=== PATIENT | female | born 1990 | race Caucasian/White ===

== ENCOUNTER 2017-08-14 15:20 | Emergency (ER) | payer OTHER ==
[~2017-08-14] VITALS: Ht 170.2 cm; Wt 53.5 kg
[~2017-08-14 15:20] MED LIST: IBUPROFEN 600600 M1 PO; NOHOMEMEDICATIONS; PRENATAL
[2017-08-14] MEDS ORDERED: ZOLOFT50 MG PO (15:37)
[2017-08-14] MEDS ORDERED: BUSPIRONE HCL10 MG PO (15:38)
[2017-08-14 16:14] LABS: URINE BILIRUBIN NEGATIVE (Negative); URINE BLOOD NEGATIVE (Negative); URINE CLARITY CLEAR; URINE COLOR YELLOW; URINE GLUCOSE-RANDOM NEGATIVE (Negative); URINE KETONES TRACE (Negative); URINE LEUKOCYTES NEGATIVE (Negative); URINE NITRITE NEGATIVE (Negative); URINE PROTEIN NEGATIVE (Negative); URINE UROBILINOGEN 0.2 E.U./dl (0.2-1.0)
[2017-08-14 17:49] VITALS: BP 106/56
== END 2017-08-14 17:49 | disposition home or self-care (01) ==
LOC: M.ERS 15:20
PROVIDERS: Physician Assistant
DX: S16.1XXA Strain of muscle, fascia and tendon at neck level, initial encounter (principal); S00.83XA Contusion of other part of head, initial encounter; S70.12XA Contusion of left thigh, initial encounter; S20.221A Contusion of right back wall of thorax, initial encounter; L40.9 Psoriasis, unspecified; Z85.828 Personal history of other malignant neoplasm of skin; Z88.6 Allergy status to analgesic agent; Z88.5 Allergy status to narcotic agent; Y04.2XXA Assault by strike against or bumped into by another person, initial encounter; Y93.89 Activity, other specified; Y92.89 Other specified places as the place of occurrence of the external cause; Y99.8 Other external cause status

== ENCOUNTER 2017-08-29 21:42 | Inpatient (IN) | payer OTHER ==
[~2017-08-29] VITALS: Ht 167.6 cm; Wt 54.0 kg
[~2017-08-29 21:42] MED LIST changes: +BUSPIRONE HCL10 MG PO; +ZOLOFT50 MG PO
[2017-08-29 21:44] VITALS: BP 93/56
[2017-08-29 22:06] LABS: ABSOLUTE BASOPHILS 0.1 thou/uL (0.0-0.2); ABSOLUTE EOSINOPHILS 0.2 thou/uL (0.0-0.7); ABSOLUTE LYMPHOCYTES 2.3 thou/uL (0.8-5.3); ABSOLUTE MONOCYTES 0.8 thou/uL (0.0-1.2); ABSOLUTE NEUTROPHILS 5.7 thou/uL (1.6-8.1); EOSINOPHILS 2.3 %; HEMATOCRIT 39.5 % (37.0-47.0); HEMOGLOBIN 13.3 gm/dL (12.0-15.0); LYMPHOCYTES 24.8 %; MCH 30.5 pg (26.0-34.0); MCHC 33.6 g/dL (28.0-37.0); MCV 90.7 fL (80.0-100.0); MONOCYTES 8.9 %; MPV 8.5 fl. (7.2-11.1); NUCLEATED RBCS 0 /100WBC; PLATELET COUNT* 227 thou/uL (150-400); RBC 4.35 mil/uL (4.20-5.00); RDW-CV 12.8 % (10.5-14.5); WBC 9.1 thou/uL (4.0-11.0)
[2017-08-29 22:08] LABS: BE -0.5 mmol/L (-2 to +3); HCO3 24.1 mmol/L (22.0-26.0); PCO2 39.4 mmHg (35.0-45.0); PO2 74.5 mmHg (75.0-100.0); pH 7.404 (7.340-7.450)
[2017-08-29 22:15] LABS: ANION GAP 6 mmol/L (7-16); APTT 25.2 Seconds (25.0-31.3); BUN 19 mg/dL (7-18); CALCIUM 8.7 mg/dL (8.5-10.1); CHLORIDE 105 mmol/L (98-107); CO2 29 mmol/L (21-32); CREATININE 1.1 mg/dL (0.6-1.3); GLUCOSE 153 mg/dL (70-99); INR 1.2; POTASSIUM 3.7 mmol/L (3.5-5.1); PROTIME 11.9 Seconds (9.20-11.50); SODIUM 140 mmol/L (136-145)
[2017-08-29 22:22] LABS: ACETAMINOPHEN < 2 ug/mL (10-30); ALCOHOL < 10 mg/dL (<10); SALICYLATE < 2.8 mg/dL (2.8-20.0)
[2017-08-29 22:26] LABS: URINE BILIRUBIN NEGATIVE (Negative); URINE BLOOD NEGATIVE (Negative); URINE CLARITY CLEAR; URINE COLOR YELLOW; URINE GLUCOSE-RANDOM NEGATIVE (Negative); URINE KETONES TRACE (Negative); URINE LEUKOCYTES-REFLEX NEGATIVE (Negative); URINE PROTEIN 1+ (Negative); URINE SPECIFIC GRAVITY >= 1.030 (1.005-1.030)
--- NOTE | 2017-08-29 22:26 | NUR ---
While removing patients clothing found a vaginal pad attatched to panties with a small clear bag taped to under side of pad with unknown substance. Security notified handed off to Caitlyn Bynum 505. [employer] notified and vaginal pad with substance attatched handed off to officer Tito [id number].
[2017-08-29 22:27] LABS: URINE NITRITE-REFLEX POSITIVE (Negative)
[2017-08-29 22:34] LABS: AMP/METHAMP POSITIVE (Negative); BARBITURATES Negative (Negative); BENZODIAZEPINES Negative (Negative); COCAINE Negative (Negative); METHADONE Negative (Negative); OPIATES Negative (Negative); PCP Negative (Negative); THC Negative (Negative)
[2017-08-29 22:34] LABS: ALBUMIN 3.8 g/dL (3.4-5.0); ALKALINE PHOSPHATASE 58 U/L (46-116); CK-MB MASS 2.6 ng/mL (<0.5-3.6); NT-PRO BRAIN NAT PEPTIDE 11 pg/mL (<300); SGOT 23 U/L (15-37); SGPT 32 U/L (30-65); TOTAL BILIRUBIN 0.4 mg/dL (<0.1-1.0); TOTAL PROTEIN 6.8 g/dL (6.4-8.2); TROPONIN-I LEVEL <0.06 ng/mL (<0.06)
[2017-08-29 22:42] LABS: HYALINE CASTS 4-10 Moderate /LPF (None Seen); MUCUS 0-3 Light strn/LPF (None Seen); SQUAMOUS 4-10 Moderate /LPF (0-3)
[2017-08-29 22:43] LABS: BACTERIA-REFLEX >30 Many /HPF (None Seen); CRYSTALS None Seen /LPF (None Seen); URINE RBC 3-10 Few /HPF (0-2); URINE WBC-REFLEX 6-15 Few /HPF (0-5)
--- NOTE | 2017-08-29 23:18 | NUR ---
[employer] report number [id number]
[2017-08-30] VITALS (20 sets, daily range): BP systolic 86–142; BP diastolic 43–77
--- NOTE | 2017-08-30 00:40 | NUR ---
ICU nurse Giselle lundberg to assist with transfer to ICU.
--- NOTE | 2017-08-30 01:05 | NUR ---
Unable to discharge from board due to staff nurse dismissing in error. Pt went to ICU intubated.
--- NOTE | 2017-08-30 01:10 | NUR ---
PATIENT ARRIVED TO UNIT AT 0106 INTUBATED WITH NS WO AND NS @100. PT RESPONSIVE TO NAME AND TOUCH. ABCESS PRESENT ON LEFT FOREARM. PSORIASIS SCARS BILATERAL ON LOWER EXTREMITIES. VITALS HR 77, RR 14, BP 96/67 (76), BS 141, T 97.6. PT HAS RIGHT AND LEFT PERIPHERAL IV AND RIGHT TRIPLE IJ CONFIRMED WITH X-RAY. WILL CONTINUE TO MONITOR CLOSELY.
[2017-08-30 02:13] LABS: BE -5.2 mmol/L (-2 to +3); HCO3 20.8 mmol/L (22.0-26.0); PCO2 42.4 mmHg (35.0-45.0); pH 7.309 (7.340-7.450)
[2017-08-30 02:16] LABS: PO2 228.1 mmHg (75.0-100.0)
--- NOTE | 2017-08-30 02:18 | NUR ---
SPOKE WITH DR CONTE AT 0200 AND RECIEVED ORDERS FOR AM LABS AND PULMONARY CONSULT. CALLED DR HAMILTON AND REPORTED ABG RESULTS, VENT SETTINGS AND BREATHING TREATMENTS.
[2017-08-30 04:50] LABS: ABSOLUTE EOSINOPHILS 0.1 thou/uL (0.0-0.7); ABSOLUTE LYMPHOCYTES 2.2 thou/uL (0.8-5.3); ABSOLUTE MONOCYTES 0.7 thou/uL (0.0-1.2); ABSOLUTE NEUTROPHILS 4.2 thou/uL (1.6-8.1); BASOPHILS 0.2 %; HEMATOCRIT 34.6 % (37.0-47.0); HEMOGLOBIN 11.7 gm/dL (12.0-15.0); LYMPHOCYTES 30.9 %; MCH 30.4 pg (26.0-34.0); MCHC 33.8 g/dL (28.0-37.0); MCV 89.9 fL (80.0-100.0); MONOCYTES 9.1 %; MPV 8.7 fl. (7.2-11.1); NUCLEATED RBCS 0 /100WBC; PLATELET COUNT* 181 thou/uL (150-400); POLYS 57.8 %; RBC 3.84 mil/uL (4.20-5.00); WBC 7.2 thou/uL (4.0-11.0)
[2017-08-30 05:24] LABS: ALBUMIN 2.8 g/dL (3.4-5.0); CALCIUM 7.5 mg/dL (8.5-10.1); CREATININE 0.7 mg/dL (0.6-1.3); POTASSIUM 3.9 mmol/L (3.5-5.1); TOTAL BILIRUBIN 0.5 mg/dL (<0.1-1.0); TOTAL PROTEIN 5.1 g/dL (6.4-8.2)
--- NOTE | 2017-08-30 06:55 | NUR ---
PATIENT SLOWLY PROGRESSING. CURRENTLY ON FENTANYL GTT, VERSED. NO PRESSORS NEEDED. BP HAS BEEN SOFT MAP CONTINUES ABOVE <65. PT IS RESPONSIVE TO PAIN. PUPILS SLUGGISH. URINE OUPUT ADEQUATE. PT WENT INTO AFIB AROUND 0620 CAME OUT OF IT AROUND 0646. OG TO LIS. SPOKE WITH TWIN SISTER CHELY THIS MORNING UPDATED HER ON PT CURRENT STATUES. COMMUNICATED UNDERSTANDING HAD NO OTHER VOICED CONCERNS. WILL CONTINUE TO MONITOR CLOSELY.
[2017-08-30 08:04] LABS: BE -3.8 mmol/L (-2 to +3); HCO3 21.2 mmol/L (22.0-26.0); PCO2 38.5 mmHg (35.0-45.0); pH 7.359 (7.340-7.450)
[2017-08-30 08:05] LABS: CALCIUM 7.3 mg/dL (8.5-10.1); CREATININE 0.6 mg/dL (0.6-1.3); MAGNESIUM 1.8 mg/dL (1.8-2.4); POTASSIUM 3.5 mmol/L (3.5-5.1)
--- NOTE | 2017-08-30 10:00 | NUR ---
ASSUMED PT CARE 0730. PT STARTED ON 10MCG OF PROPOFOL. PREVIOUS SEDATION DC'D. LEVOPHED STARTED PT'S SYSTOLIC BP IN 80'S AND MAP 55. FLUIDS CHANGED TO 1/[address] NOTIFIED OF DECREASED MAP AND ASKED IF WANTED FLUIDS TO BE INCREASED. NO CHANGE IN ORDERS RECEIVED. PT TO STAY ON FLUIDS AT 50 MLS/HR.
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
[2017-08-30 12:46] LABS: BE -3.1 mmol/L (-2 to +3); HCO3 22.2 mmol/L (22.0-26.0); PCO2 40.7 mmHg (35.0-45.0); PO2 157.6 mmHg (75.0-100.0); pH 7.354 (7.340-7.450)
--- NOTE | 2017-08-30 14:11 | NUR ---
PATIENT STATES SHE ALREADY HAD FLU SHOT THIS SEASON
--- NOTE | 2017-08-30 15:01 | NUR ---
PILLS BOTTLES BROUGHT FROM ER ARE: FAMCICLOVIR 500 MG 4 TOTAL TIZANIDINE 4MG TID PRN 90 TOTAL (MED NOT PT'S) GABAPENTIN 300MG 30 TOTAL (MED NOT PT'S) MELOXICAM 7.5 MG PO BID 60 TOTAL (MED NOT PT'S) SERTRALINE 100 MG DAILY 30 TOTAL PRAZOSIN 1 MG 30 TOTAL THE MEDICATIONS THAT DID NOT BELONG TO PT BELONGED TO ERIC GIOVANY BOTTLES DISPOSED OF NO MEDICATIONS IN BOTTLES
--- NOTE | 2017-08-30 15:24 | EKG ---
[place] [address] ELECTROCARDIOGRAM REPORT Name: GIOVANYLORI Chad Room: [address] ADM IN M.R.#: [id number] Admission: 08/29/17 Attend Phys: Renny Rodriguez MD Discharge: Date of : 89 Report #: [id number] THIS REPORT FOR: //name// [facility] ED Test Date: 2017-08-29 Test Time: 21:56:38 Pat Name: LORI ADAIR Department: Room: [facility] Gender: F Cushion Sewer: GL : 1990 Requested By: Star Herrera Order Number: [id number] MD: Eduardo Koch Measurements Intervals [place] Rate: 80 P: 53 RI: 88 QRS: 86 QRSD: 88 T: 48 QT: 383 QTc: 442 Interpretive Statements Sinus rhythm Short RI interval Compared to ECG 01/30/2012 21:12:53 Short RI interval now present Sinus tachycardia no longer present Electronically Signed On 08-30-2017 15:24:07 CDT by Eduardo Koch [email or web address] <ELECTRONICALLY SIGNED> By: Eduardo Koch MD, [facility] 08/30/17 1524 [id number] Eduardo Koch MD, [facility] /EPI
--- NOTE | 2017-08-30 15:29 | NUR ---
PT EXTUBATED AT 1305 BY LARS IN RT. PT ALERT TO PERSON, PLACE. PT DROWSY, CALM, FOLLOWING COMMANDS. PROPOFOL DC'D. 1:[address]
[2017-08-30 15:42] LABS: MAGNESIUM 2.5 mg/dL (1.8-2.4); POTASSIUM 4.4 mmol/L (3.5-5.1)
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
--- NOTE | 2017-08-30 18:06 | NUR ---
POTASSIUM AND MAGNESIUM REPLACED PER PROTOCOL. PT C/O OF HEADACHE. DR NOTIFIED ASKED FOR IBPROFEN. IBPROFEN ADMININSTERED PER AUG. PT C/O OF NAUSEA WITHOUT EMESIS. NOTIFIED RECEIVED ORDER FOR ZOFRAN. VSS. AFEBRILE.
[2017-08-31] VITALS (17 sets, daily range): BP systolic 89–1108; BP diastolic 43–73
[2017-08-31 04:52] LABS: ABSOLUTE EOSINOPHILS 0.2 thou/uL (0.0-0.7); ABSOLUTE LYMPHOCYTES 2.7 thou/uL (0.8-5.3); ABSOLUTE MONOCYTES 0.8 thou/uL (0.0-1.2); ABSOLUTE NEUTROPHILS 3.6 thou/uL (1.6-8.1); BASOPHILS 0.4 %; EOSINOPHILS 2.5 %; HEMATOCRIT 32.3 % (37.0-47.0); HEMOGLOBIN 10.8 gm/dL (12.0-15.0); LYMPHOCYTES 36.9 %; MCH 30.7 pg (26.0-34.0); MCHC 33.5 g/dL (28.0-37.0); MCV 91.7 fL (80.0-100.0); MONOCYTES 10.6 %; MPV 9.2 fl. (7.2-11.1); NUCLEATED RBCS 0 /100WBC; PLATELET COUNT* 164 thou/uL (150-400); POLYS 49.6 %; RBC 3.52 mil/uL (4.20-5.00); RDW-CV 13.4 % (10.5-14.5); WBC 7.2 thou/uL (4.0-11.0)
--- NOTE | 2017-08-31 05:05 | NUR ---
PATIENT PROGRESSING TOWARDS GOALS. NO ACUTE HEMODYNAMIC CHANGES OVER NIGHT. PATIENT COMPLAINED OF A HEADACHE, SUBSIDED WITH MEDICATION. ARIANNE WAS TAKEN OUT. PT ABLE TO GO ON COMMODE. ORIENT X4. PT SEEMS TO BE STRONGER AND LESS DROWSY THEN BEGINNING OF SHIFT. SHE HAD TWO PT BOXED LUNCHES LAST NIGHT TOLERATED WELL. DENIED N &V. SITTER IN ROOM. NO VOICED CONCERNS AT THIS TIME. SAFETY PRECAUTIONS IN PLACE.
[2017-08-31 05:06] LABS: ALBUMIN 2.6 g/dL (3.4-5.0); CALCIUM 7.7 mg/dL (8.5-10.1); CREATININE 0.7 mg/dL (0.6-1.3); MAGNESIUM 2.1 mg/dL (1.8-2.4); POTASSIUM 4.3 mmol/L (3.5-5.1); TOTAL BILIRUBIN 0.3 mg/dL (<0.1-1.0); TOTAL PROTEIN 4.9 g/dL (6.4-8.2)
[2017-08-31 05:50] LABS: PHOSPHORUS* 4.5 mg/dL (2.5-4.9)
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
[2017-08-31 11:36] LABS: BE -0.3 mmol/L (-2 to +3); PCO2 37.9 mmHg (35.0-45.0); PO2 121.1 mmHg (75.0-100.0); pH 7.419 (7.340-7.450)
--- NOTE | 2017-08-31 15:59 | NUR ---
VSS. AFEBRILE. SR. NO C/O PAIN. PT REQUESTING FOOD. NO NAUSEA. PT BECAME UPSET WITH WHEN HE CAME TO VISIT. ASKED TO STEP OUT PER REQUEST OF SECURITY. COMPLIANT. PT ASKED FOR TO COME BACK IN ROOM. REFUSED TO GO BACK IN ROOM. PT BECAME TEARFUL . PT CALMED DOWN AFTER SPEAKING TO MOTHER. PT'S SAFETY MAINTAINED. ADDITIONAL AFFADAVIT OBTAINED. AWAITING NOTARY PRIOR TO PLACE IN CHART.
--- NOTE | 2017-08-31 17:59 | NUR ---
ASSUMED CARE OF PATIENT AT 1600. SITTER 1:[address] PATIENT AWAKE AND VISITING WITH FRIENDS/FAMILY THIS EVENING. NO COMPLAINTS AT THIS TIME.
--- NOTE | 2017-08-31 21:55 | NUR ---
SEPTEMBER GIVES PERMISSION FOR STEP-MOTHER, KAYE, TO HAVE INFORMATION AND TO BE ABLE TO VISIT.
[2017-09-01] VITALS (7 sets, daily range): BP systolic 100–113; BP diastolic 43–70
--- NOTE | 2017-09-01 04:28 | NUR ---
ASSUMED PATIENT CARE AT 1900. PATIENT ALERT AND ORIENTED TIMES FOUR. CIVIL PREPAREDNESS TRAINING OFFICER COMPLETED DOCUMENTED, HAD VISITORS FOR A SIG AMOUNT OF TIME THIS EVENING. NO COMPLAINTS OF PAIN OR DISCOMFORT NOTED. COMPLIANT WITH ALL CARES. MORE POSITIVE ATITUDE ABOUT LIFE EXHIBITED. STATES "I KNOW I HAVE A LOT TO LIVE FOR AND WANT TO GET BETTER" REQUESTS NICOTINE PATCH. INDPENDENT WITH ALL CARES. SMALL RAISED AREA ON LEFT FOREARM THAT PATIENT SAYS "IT NEEDS TO BE CUT OPEN" ADMITS THAT THE AREA HAS BEEN THERE FOR SOME TIME AND THAT IT DOES NOT HURT. 1:[address] THROUGHOUT SHIFT[address]
[2017-09-01] MEDS ORDERED: VENTOLIN HFA 1818 GM INH (07:55)
--- NOTE | 2017-09-01 11:10 | NUR ---
ASSUMED CARE OF PATIENT AT THIS TIME. REPORT RECEIVED FROM MONSERRAT. PATIENT SETTLED TO ROOM. NO PERSONAL BELONGINGS WITH PATIENT. PATIENT HAS SITTER AT BEDSIDE. PATIENT STATES SHE IS HUNGRY AND WANTS TO TAKE SHOWER. SNACKS GIVEN AND SITTER IS TAKING TO SHOWER ROOM. NO THER CONCERNS AT THIS TIME. WILL CONTINUE TO MONITOR.
--- NOTE | 2017-09-01 11:30 | NUR ---
I ASSUMED CARE OF THE PATIENT AT 0700. SHE IS ALERT AND ORIENTED X4, BED IS IN THE LOW LOCKED POSITION, SITTER IS AT THE BEDSIDE, ROOM HAS BEEN SCRUBBED FOR SI PRECAUTIONS. HOURLY ROUNDING WAS COMPLETED AND PATIENT NEEDS ARE MET. PAIN IS DENIED. NICOTINE PATCH REQUESTED. CASE MANAGEMENT HAS BEEN NOTIFIED THAT PATIENT HAS AN AFFIDAVID THAT NEEDS NOTARIZED AND MOTHER IS WILLING TO DO AN AFFIDAVID WELL IF IT WILL HELP KEEP THE PATIENT SAFE. SKIN IS W/D/I. VITALS ARE STABLE. SHE IS UP WITH STAND BY ASSIST TO THE BEDSIDE COMMODE. PATIENT HAS NOT HAD VISITORS TODAY. WILL CONTINUE TO MONITOR. REPORT CALLED TO SIL[facility]NA AND PATIENT TRANSFERED TO [facility]. WILL CONTINUE TO MONITOR.
--- NOTE | 2017-09-01 14:57 | NUR ---
SW aware pt medically cleared to be able to dc to inpt psych today. SW faxed referral to [facility] and provided referral to Alice to be able to send more referrals for potential transition to inpt psych.
--- NOTE | 2017-09-01 16:05 | NUR ---
RADHA SPOKE TO HILARIO WITH [facility] AND SHE INFORMS THAT MORE INFORMATION IS NEEDED ON THE PATIENT PRIOR TO ACCEPTANCE TO INPATIENT PSYCH. CM FAXED PATIENTS UPDATED PROGRESS NOTES, CURRENT MEDS, AND EXTIBATION INFO. CM WILL REMAIN AVAILABLE TO ASSIST AND FOLLOW NEEDED.
[2017-09-01] MEDS ORDERED: AUGMENTIN 875-1 EACH PO (17:10)
--- NOTE | 2017-09-01 18:45 | NUR ---
PATIENT DISCHARGED TO [facility]. REPORT CALLED TO HILARIO. PATIENT TAKEN BY AMBULANCE. BELONGINGS GIVEN TO EMS TRANSPORTERS. PATIENT LEFT IN HOSPITAL GOWN. IJ REMOVED AND PRESSURE DRESSING APPLIED. PATIENT LEFT AT THIS TIME.
== END 2017-09-01 18:45 | DRG 917 ==
LOC: M.ERS 21:42 → M.ICU 23:08 → M.TBA-ER 23:08 → M.ICU 08-30 00:30 → M.3W 09-01 11:27
PROVIDERS: Family Medicine; Internal Medicine Critical Care Medicine; Internal Medicine Pulmonary Disease; ADMIT Internal Medicine
DX: T42.6X2A Poisoning by other antiepileptic and sedative-hypnotic drugs, intentional self-harm, initial encounter (principal); J96.00 Acute respiratory failure, unspecified whether with hypoxia or hypercapnia; G92 Toxic encephalopathy; J69.0 Pneumonitis due to inhalation of food and vomit; E87.0 Hyperosmolality and hypernatremia; T37.5X2A Poisoning by antiviral drugs, intentional self-harm, initial encounter; T43.222A Poisoning by selective serotonin reuptake inhibitors, intentional self-harm, initial encounter; T42.8X2A Poisoning by antiparkinsonism drugs and other central muscle-tone depressants, intentional self-harm, initial encounter; T39.392A Poisoning by other nonsteroidal anti-inflammatory drugs [NSAID], intentional self-harm, initial encounter; F31.9 Bipolar disorder, unspecified; F17.210 Nicotine dependence, cigarettes, uncomplicated; F15.10 Other stimulant abuse, uncomplicated; F14.10 Cocaine abuse, uncomplicated; J45.909 Unspecified asthma, uncomplicated; I95.9 Hypotension, unspecified; L40.9 Psoriasis, unspecified; Y92.89 Other specified places as the place of occurrence of the external cause; Z85.828 Personal history of other malignant neoplasm of skin; Z88.8 Allergy status to other drugs, medicaments and biological substances; Z28.21 Immunization not carried out because of patient refusal

== ENCOUNTER 2020-08-10 20:40 | Emergency (ER) | payer OTHER ==
[~2020-08-10] VITALS: Ht 170.2 cm; Wt 59.0 kg
[~2020-08-10 20:40] MED LIST changes: +AUGMENTIN 875-1 EACH PO; +VENTOLIN HFA 1818 GM INH
[2020-08-10] MEDS ORDERED: IBUPROFEN 800800 MG PO (21:48)
[2020-08-10 22:23] VITALS: BP 121/74
== END 2020-08-10 22:25 | disposition home or self-care (01) ==
LOC: M.ERS 20:40
DX: S90.31XA Contusion of right foot, initial encounter (principal); L40.9 Psoriasis, unspecified; Z88.5 Allergy status to narcotic agent; W22.8XXA Striking against or struck by other objects, initial encounter; Y93.89 Activity, other specified; Y92.89 Other specified places as the place of occurrence of the external cause; Y99.8 Other external cause status